=== PATIENT | female | born 1930 | race Asian ===

== ENCOUNTER → 2016-11-19 | Outpatient (CLI) | payer OTHER ==
[~2016-11-19] MED LIST: AMLO5TAB66 PO; ASPI-556 PO; ATOR40TA28 PO; DILT180T9 PO; EZET10 PO; FAMO40TA7 PO; METF1000 PO; METO50 PO; MONT10TA21 PO; SITA50 PO; VALS1TAB8 PO
== END | disposition home or self-care (01) ==
LOC: RADPV 10:11
PROVIDERS: ATTEND Internal Medicine Interventional Cardiology
DX: I70.213 Atherosclerosis of native arteries of extremities with intermittent claudication, bilateral legs (principal)
CPT/HCPCS: 93880; 93925